=== PATIENT | female | born 1995 | race Caucasian/White ===

== ENCOUNTER 2017-04-12 15:52 | Outpatient (CLI) | payer BC, MEDICAID ==
[~2017-04-12] VITALS: Ht 162.6 cm; Wt 63.6 kg
[~2017-04-12 15:52] MED LIST: DOCU-131 PO; HYDR-3240 PO; IBUP-1223 PO
[2017-04-12 16:10] VITALS: BP 115/67
[2017-04-12] MEDS ORDERED: PREN1TAB69 PO (16:42)
[2017-04-12 16:55] LABS: DAU SCREEN DISCLAIMER
[2017-04-12 17:05] LABS: PATH.CAST-FLAG NOT PRESENT; SPERM-FLAG NOT PRESENT; SRC-FLAG NOT PRESENT; XTAL-FLAG NOT PRESENT; YLC-FLAG NOT PRESENT
== END 2017-04-12 17:46 | disposition home or self-care (01) ==
LOC: LDOP 15:52
PROVIDERS: ATTEND Obstetrics & Gynecology
DX: O26.893 Other specified pregnancy related conditions, third trimester (principal); O36.8130 Decreased fetal movements, third trimester, not applicable or unspecified; O99.343 Other mental disorders complicating pregnancy, third trimester; R10.9 Unspecified abdominal pain; F32.9 Major depressive disorder, single episode, unspecified; Z3A.00 Weeks of gestation of pregnancy not specified
CPT/HCPCS: 36415; 59025; 80307; 81001; 82731; 87086; 99201; G0463; G0479

== ENCOUNTER 2017-05-06 10:51 | Outpatient (CLI) | payer BC ==
[~2017-05-06 10:51] MED LIST changes: +PREN1TAB69 PO
[2017-05-06 11:31] VITALS: BP 119/60
[2017-05-06 11:46] LABS: AMNISURE NEGATIVE (NEGATIVE)
[2017-05-06 11:47] LABS: AMNI OBC PASS
== END 2017-05-06 12:16 | disposition home or self-care (01) ==
LOC: LDOP 10:51
PROVIDERS: ATTEND Obstetrics & Gynecology Gynecology
DX: O42.913 Preterm premature rupture of membranes, unspecified as to length of time between rupture and onset of labor, third trimester (principal); O26.893 Other specified pregnancy related conditions, third trimester; O99.343 Other mental disorders complicating pregnancy, third trimester; R10.2 Pelvic and perineal pain; F32.9 Major depressive disorder, single episode, unspecified; Z3A.34 34 weeks gestation of pregnancy
CPT/HCPCS: 59025; 84112; 99211; G0463

== ENCOUNTER 2017-05-31 10:23 | Observation (INO) | payer BC ==
[~2017-05-31] VITALS: Ht 162.6 cm; Wt 68.1 kg
[2017-05-31 10:35] VITALS: BP 96/54
[2017-05-31] MEDS ORDERED: D5%-LACTATED RINGERS 1,000 ML IV SCH (11:00)
[2017-05-31] MEDS ORDERED: METOCLOPRAMIDE 5 MG/ML, 2ML IVPush ONE (11:00)
[2017-05-31] MEDS ORDERED: DIPHENHYDRAMINE 50 MG/ML, 1ML IVPush ONE (11:00)
[2017-05-31] MEDS ORDERED: DIPHENHYDRAMINE 50 MG/ML, 1ML ONE (11:10)
[2017-05-31] MEDS ORDERED: METOCLOPRAMIDE 5 MG/ML, 2ML ONE (11:11)
[2017-05-31] MEDS ORDERED: FENTANYL PF 100 MCG/2ML ONE (12:25)
[2017-05-31] MEDS ORDERED: FENTANYL PF 100 MCG/2ML IV ONE ×2 (12:30→14:30)
[2017-05-31] MEDS ORDERED: LACTATED RINGERS 1,000 ML IVBOLUS ONE (14:30)
== END 2017-05-31 15:23 | disposition home or self-care (01) ==
LOC: LDOP 10:23 → LDIP 10:56
PROVIDERS: ADMIT Student in an Organized Health Care Education/Training Program; ATTEND Student in an Organized Health Care Education/Training Program
DX: O26.893 Other specified pregnancy related conditions, third trimester (principal); G43.909 Migraine, unspecified, not intractable, without status migrainosus; Z3A.38 38 weeks gestation of pregnancy
CPT/HCPCS: 59025; 96360; 96361; 96374; 96375; 99211; G0378; J1200; J2765; J3010; J7120; G0463; J7121